=== PATIENT | female | born 1990 | race Caucasian/White ===

== ENCOUNTER 2019-09-17 20:09 | Emergency (ER) | payer MEDICAID ==
[2019-09-17] MEDS ORDERED: Ketorolac 60 MG/2 ML SDV IM ONE (20:31)
--- NOTE | 2019-09-17 20:36 | EDM.PDOC ---
ED HPI GENERAL MEDICAL PROBLEM - General Chief Complaint: ENT Problem Stated Complaint: TOOTH PAIN Time Seen by Provider: 09/17/19 20:11 Source of Information: Reports: Patient History Limitations: Reports: No Limitations - History of Present Illness INITIAL COMMENTS - FREE TEXT/NARRATIVE: This is a 29-year-old female. About 3 weeks ago when she was eating she broke her back molar on the right lower jaw. She did not think anything of it since it was not bothering her and she kind of put off seeing the dentist and then yesterday especially she started having increased pain in that right lower molar tooth. She says she was not able to sleep very well last night. She thinks she has an infection in the tooth and she comes to the ER for evaluation. She has an appointment set up on Thursday to see the dentist to get the tooth pulled. Fever no chills no nausea or vomiting no other acute symptoms. She does not notice any bad taste in her mouth from that tooth is just painful and throbbing. 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: , Prolapsed Uterus Social & Family History - Family History Family Medical History: Noncontributory - Tobacco Use Smoking Status *Q: Never Smoker - Caffeine Use Caffeine Use: Reports: None ED ROS ENT - Review of Systems Review Of Systems: See Below Constitutional: Denies: Fever, Chills HEENT: Reports: Dental Pain Respiratory: Denies: Shortness of Breath, Cough Cardiovascular: Denies: Chest Pain Endocrine: Reports: No Symptoms GI/Abdominal: Reports: No Symptoms : Reports: No Symptoms Musculoskeletal: Reports: No Symptoms Skin: Reports: No Symptoms Neurological: Reports: No Symptoms Psychiatric: Reports: No Symptoms Hematologic/Lymphatic: Reports: No Symptoms ED EXAM, ENT - Physical Exam Exam: See Below Exam Limited By: No Limitations General Appearance: Alert, WD/WN, No Apparent Distress Eye Exam: Bilateral Eye: Normal Inspection Ears: Normal External Exam Nose: Normal Inspection Mouth/Throat: Normal Gums, Normal Oropharynx, Dental Pain, Dental Tenderness, Other (Back right molar just in front of the wisdom teeth has a fracture noted and a hole in the center of it, there is no drainage from that tooth though it is tender when I touch it with a tongue depressor, there is no soft tissue swelling noted or gum swelling noted, she is holding an ice pack to that right jaw area) Head: Normocephalic Neck: Supple Respiratory/Chest: No Respiratory Distress Back: Full Range of Motion Extremities: Normal Inspection, Normal Range of Motion Neurological: Alert, Oriented Psychiatric: Normal Affect, Normal Mood Skin: Warm, Dry Course - Vital Signs Last Recorded V/S: Last Vital Signs Temp 97.4 F 09/17/19 20:17 Pulse 66 09/17/19 20:17 Resp 16 09/17/19 20:17 BP 136/83 09/17/19 20:17 Pulse Ox 97 09/17/19 20:17 - Orders/Labs/Meds Orders: Active Orders 24 hr Category Date Time Status Ketorolac [Toradol] Med 09/17/19 20:31 Once 60 mg IM ONETIME ONE Departure - Departure Time of Disposition: 20:34 Disposition: Home, Self-Care 01 Condition: Good Clinical Impression: Dental infection, Pain, dental - Discharge Information *PRESCRIPTION DRUG MONITORING PROGRAM REVIEWED*: Not Applicable *COPY OF PRESCRIPTION DRUG MONITORING REPORT IN PATIENT BLAIR: Not Applicable Instructions: Dental Abscess, [id number] Referrals: PCP,None [Primary Care Provider] - Additional Instructions: Continue to use ice or heat to the jaw as needed for comfort, considering getting some [id number] putty or wax called "CAP IT" to plug up that whole and cover the exposed nerve, get the medicines for pain and the antibiotics out of the [employer] machine in the lobby before you go home, follow- up with a dentist on Thursday that you have planned for repair or extraction of the tooth, return to the ER if needed Sepsis Event Note - Evaluation Sepsis Screening Result: No Definite Risk - Focused Exam Vital Signs: Vital Signs Temp Pulse Resp BP Pulse Ox 09/17/19 20:17 97.4 F 66 16 136/83 97 Date Exam was Performed: 09/17/19 Time Exam was Performed: 20:31 - My Orders Last 24 Hours: My Active Orders 09/17/19 20:31 Ketorolac [Toradol] 60 mg IM ONETIME ONE - Assessment/Plan Last 24 Hours: My Active Orders 09/17/19 20:31 Ketorolac [Toradol] 60 mg IM ONETIME ONE
== END 2019-09-17 20:52 | disposition home or self-care (01) ==
LOC: JD.ED 20:09
DX: K04.7 Periapical abscess without sinus (principal)
CPT/HCPCS: 96372; 99282; J1885; 99283